=== PATIENT | male | born 1975 | race Caucasian/White ===

== ENCOUNTER 2020-10-22 16:41 | Emergency (ER) | payer OTHER ==
[2020-10-22] MEDS ORDERED: ZOFRAN ODT 4 MG4 MG PO (19:51)
== END 2020-10-22 20:14 | disposition home or self-care (01) ==
LOC: ER1 16:41
DX: R11.0 Nausea (principal); R09.82 Postnasal drip; R43.0 Anosmia; Z20.822 Contact with and (suspected) exposure to COVID-19
CPT/HCPCS: 0240U; 99283

== ENCOUNTER 2020-11-04 21:26 | Emergency (ER) | payer OTHER ==
[~2020-11-04 21:26] MED LIST: ZOFRAN ODT 4 MG4 MG PO
== END 2020-11-04 22:07 | disposition home or self-care (01) ==
LOC: ER1 21:26
DX: Z53.21 Procedure and treatment not carried out due to patient leaving prior to being seen by health care provider (principal)

== ENCOUNTER 2020-12-02 14:38 | Emergency (ER) | payer OTHER | END 2020-12-02 15:08 | disposition left against medical advice (07) | LOC: ER1 14:38 | DX: Z53.21 Procedure and treatment not carried out due to patient leaving prior to being seen by health care provider (principal) ==

== ENCOUNTER → 2021-02-17 | Outpatient (CLI) | payer OTHER | LOC: RAD 14:53 | DX: M79.641 Pain in right hand (principal); S60.921A Unspecified superficial injury of right hand, initial encounter | CPT/HCPCS: 73130 ==

== ENCOUNTER 2021-09-16 18:23 | Emergency (ER) | payer OTHER ==
[2021-09-16 21:04] LABS: HEMOGLOBIN 14.7 gm/dl (14.0-17.5); RED BLOOD COUNT 5.1 M/UL (4.20-5.50); WHITE BLOOD COUNT 5.8 K/UL (4.5-11.0)
[2021-09-16 22:00] LABS: BUN/CREATININE RATIO 10 (0-10)
== END 2021-09-17 01:24 | disposition home or self-care (01) ==
LOC: ER1 18:23
PROVIDERS: Physician Assistant
DX: R07.89 Other chest pain (principal); R06.02 Shortness of breath; Z20.822 Contact with and (suspected) exposure to COVID-19
CPT/HCPCS: 80053; 81001; 82550; 82553; 83874; 83880; 84484; 85025; 85610; 85730; 87040; 93005; 99285; Q9967; U0003